=== PATIENT | male | born 1935 | race Caucasian/White ===

== ENCOUNTER → 2016-06-30 | Outpatient (CLI) | payer MEDICARE ==
--- NOTE | 2016-06-30 10:20 | REP ---
Clinical: History of COPD . Comparison: 06/26/2015 . Technique: PA and lateral. Findings: The mediastinum and cardiac silhouette are normal. The lung escobar are clear and without acute consolidation, effusion, or pneumothorax. The skeletal structures are intact and normal. Impression: 1. No acute cardiopulmonary process. Signed by Godwin Bauer MD 06/30/2016 10:12 A
== END ==
LOC: M SMT 09:11
PROVIDERS: ATTEND Internal Medicine Pulmonary Disease
DX: J44.9 Chronic obstructive pulmonary disease, unspecified (principal)

== ENCOUNTER → 2017-11-25 | Outpatient (CLI) | payer MEDICARE | LOC: M SMT 09:38 | DX: J44.9 Chronic obstructive pulmonary disease, unspecified (principal) | CPT/HCPCS: 71046 ==